=== PATIENT | female | born 1935 | race American Indian/Alaskan Native ===

== ENCOUNTER 2017-09-24 09:53 | Emergency (ER) | payer OTHER ==
--- NOTE | 2017-09-24 11:08 | C.PDOC ---
History Of Present Illness Patient with history of Urinary Retention and UTI secondary to stroke presents to ED sent by Dr. Marcial for further evaluation of dysuria and hematuria. Patient had followed up with Dr. Marcial as outpatient and reports she continues to have pain. Patient denies abdominal pain, back pain, fever, chills or any other complaints at this time. Time Seen by Provider: 09/24/17 10:25 Chief Complaint (Nursing): Medical Clearance History Per: Patient History/Exam Limitations: no limitations Onset/Duration Of Symptoms: Days Past Medical History Reviewed: Historical Data, Nursing Documentation, Vital Signs Vital Signs: Last Vital Signs Temp 98.2 F 09/24/17 11:25 Pulse 67 09/24/17 11:25 Resp 67 H 09/24/17 11:25 BP 145/71 09/24/17 11:25 Pulse Ox 98 09/24/17 11:44 - Medical History PMH: HTN, Hyperlipidemia Surgical History: No Surg Hx Family History: States: No Known Family Hx - Social History Hx Alcohol Use: No Hx Substance Use: No - Immunization History Hx Tetanus Toxoid Vaccination: No Hx Influenza Vaccination: No Hx Pneumococcal Vaccination: No Review Of Systems Constitutional: Negative for: Fever, Chills Gastrointestinal: Negative for: Nausea, Vomiting Genitourinary: Positive for: Dysuria, Hematuria Musculoskeletal: Negative for: Back Pain Skin: Negative for: Rash Physical Exam - Physical Exam Appears: Non-toxic, No Acute Distress Skin: Warm, Dry, No Rash Head: Atraumatic, Normacephalic Eye(s): bilateral: Normal Inspection Oral Mucosa: Moist Neck: Normal ROM, Supple Cardiovascular: Rhythm Regular Respiratory: No Rales, No Rhonchi, No Wheezing Gastrointestinal/Abdominal: Soft, No Tenderness, No Guarding, No Rebound Back: No CVA Tenderness Pelvic: Other (Aguiar in place) Neurological/Psych: Oriented x3, Normal Speech, Normal Cognition ED Course And Treatment O2 Sat by Pulse Oximetry: 98 (RA) Pulse Ox Interpretation: Normal Medical Decision Making Medical Decision Making: Dr. Shruti Marcial (urologist) has evaluated the patient at bedside who states that the patient is safe for discharge, and states to remove the catheter and to place the patient on Levaquin PO for 10 days. Disposition - Disposition Referrals: Shruti Marcial MD [Staff Provider] - Disposition: HOME/ ROUTINE Disposition Time: 11:04 Condition: GOOD Additional Instructions: Follow up with the medical doctor/clinic within 1-2 days without fail. Return if worsened. Prescriptions: levoFLOXacin [Levaquin] 500 mg PO DAILY #10 tab Instructions: Blood in the Urine (Hematuria) in Adults Forms: [facility] ([place]) - Clinical Impression Clinical Impression: UTI (urinary tract infection), Hematuria - PA / MAKE UP ARTIST / Resident Statement MD/DO has reviewed & agrees with the documentation as recorded. - Scribe Statement The provider has reviewed the documentation as recorded by the Andrewibedmundo Kessler All medical record entries made by the Gianfranco were at my direction and personally dictated by me. I have reviewed the chart and agree that the record accurately reflects my personal performance of the history, physical exam, medical decision making, and the department course for this patient. I have also personally directed, reviewed, and agree with the discharge instructions and disposition.
[2017-09-24 11:27] VITALS: BP 145/71; PULSE 67; RESP 67; TEMP 98.2
[2017-09-24 11:36] VITALS: O2SAT 98
--- NOTE | 2017-09-25 04:54 | CON ---
DATE: 09/24/2017 UROLOGY CONSULTATION Urology consultation is requested by ER physician. Urology consultation is filled by Dr. Shruti Marcial. REASON FOR CONSULTATION: Urinary retention. HISTORY OF PRESENT ILLNESS: The patient is an 82-year-old female with urinary retention. The patient is otherwise in fair health. The patient has a history of diabetes mellitus. There is a history of hypertension. The patient has a history of mild cerebrovascular accident in the past. The patient has history of previous hypertension with hypertensive encephalopathy. The patient was hospitalized at [facility] in 07/2017 as well as in 08/2017. The patient has a history of urinary tract infection. The patient had hematuria at that time. The patient has a history of urinary retention as well. She has had a Aguiar catheter in place. The patient previously voided. She had fair to poor urinary control. The patient uses diaper. The patient also uses diaper for bowel movements. Mrs. Kaur has been confined to wheelchair. She is unable to ambulate. She reports difficulty with ambulation due to pain in the knees and hips. The patient has had previous surgery as follows. The patient has had knee replacements. She also reports chronic swelling of the lower extremities. The patient has a history of labor and delivery x4. No chest pain. The patient has a history of hypertension. No history of [place]. The patient also has history of asthma. SOCIAL HISTORY: The patient does not smoke. She lives at home with her daughter. ALLERGIES: SHE HAS NO HISTORY OF ALLERGIES. MEDICATIONS: Included amlodipine, atorvastatin, carvedilol, Colace, lactulose, albuterol, aspirin, donepezil, Advair, gabapentin, metformin, montelukast, and torsemide. The patient has fair to good appetite. No recent weight loss. The patient reports that she has normal bowel movements. No recent constipation. No recent diarrhea. PHYSICAL EXAMINATION: GENERAL: The patient is a well-developed, well-nourished elderly female, appearing her stated age. The patient is oriented to person and place. The patient's first reported the year has been 2019. The patient thereafter was correcting and she realized that it is 2018. ABDOMEN: Soft, nontender, nondistended. No mass or organomegaly. BACK: No CVA tenderness. Urine is clear via the Aguiar catheter. I reviewed recent laboratory data from approximately two weeks ago. BUN 18, creatinine 0.9, glucose 154. Hematocrit 26.5, white blood count 10,000. Urinalysis previously revealed 11 to 25 white blood cells. IMPRESSION: An 82-year-old female with urinary retention. Indwelling Aguiar catheter. History of hematuria. Differential diagnoses include urinary tract infection, urolithiasis, and/or neoplasia. The patient has other medical problems. The patient has decreased mobility for which she required a wheelchair. The patient uses diaper for her bowel movements and for her urination. The patient now has a Aguiar catheter indwelling for urinary retention. RECOMMENDATIONS AND PLAN: Urinalysis. Urine culture. Empiric antibiotic therapy. Trial of voiding. Scheduled voiding. I discussed the findings and plan of therapy with the patient, her daughter, as well as with the ER staff. Outpatient followup plan. Possible need for a cystoscopy, cystogram, and cystometrogram. Further therapy to follow according to the patient's clinical course as well as results of above. Thank you for recommending the patient for urology consultation. Shruti Marcial MD cc: Barbara Oleary MD
== END 2017-09-24 11:30 | disposition home or self-care (01) ==
LOC: C.ER 09:53
DX: N39.0 Urinary tract infection, site not specified (principal); R31.9 Hematuria, unspecified; E11.9 Type 2 diabetes mellitus without complications; I10 Essential (primary) hypertension; E78.5 Hyperlipidemia, unspecified; Z99.3 Dependence on wheelchair; Z86.73 Personal history of transient ischemic attack (TIA), and cerebral infarction without residual deficits